=== PATIENT | male | born 1980 | race Caucasian/White ===

== ENCOUNTER 2018-03-29 05:23 | Day surgery (SDC) | payer MEDICAID ==
[2018-03-21 11:54] LABS: BASOPHILS # (AUTO) 0.1 X10'3 (0-0.2); BASOPHILS % (AUTO) 0.8 % (0-1); EOSINOPHILS # (AUTO) 0.1 X10'3 (0-0.9); EOSINOPHILS % (AUTO) 1.8 % (0-6); LYMPHOCYTES # (AUTO) 1.8 X10'3 (1.1-4.8); LYMPHOCYTES % (AUTO) 25.9 % (21-51); MEAN CORPUSCULAR HEMOGLOBIN 29.3 PG (27.0-31.0); MEAN CORPUSCULAR HGB CONC 33.7 g/dL (33.0-36.5); MEAN CORPUSCULAR VOLUME 87.1 FL (78-98); MEAN PLATELET VOLUME 8.6 FL (7.4-10.4); MONOCYTES # (AUTO) 0.5 X10'3 (0-0.9); MONOCYTES % (AUTO) 7.4 % (2-12); NEUTROPHILS # (AUTO) 4.4 X10'3 (1.8-7.7); NEUTROPHILS % (AUTO) 64.1 % (42-75); PRE OP HEMATOCRIT 48.7 % (42.0-52.0); PRE OP HEMOGLOBIN 16.4 g/dL (14.0-17.9); PRE OP PLATELET COUNT 224 X10'3 (140-440); RED BLOOD COUNT 5.59 X10'6 (4.70-6.10); RED CELL DISTRIBUTION WIDTH 14.2 % (11.5-14.5)
[2018-03-21 12:08] LABS: ALBUMIN/GLOBULIN RATIO 1.1 (1.1-1.5); ALKALINE PHOSPHATASE 79 IU/L (46-116); BLOOD UREA NITROGEN 13 MG/DL (7-18); BUN/CREATININE RATIO 13.1 (5.4-32.0); CALCIUM 8.6 MG/DL (8.5-10.1); CHLORIDE 105 MMOL/L (99-107); CREATININE 0.99 MG/DL (0.60-1.10); PRE OP ALT 24 U/L (30-65); PRE OP ANION GAP 7 (8-16); PRE OP AST 16 U/L (10-37); PRE OP BILIRUB, TOTAL 0.5 MG/DL (0.0-1.0); PRE OP GLUCOSE 101 MG/DL (70-104); PRE OP POTASSIUM 4.1 MMOL/L (3.4-5.1); PRE OP SODIUM 140 MMOL/L (135-145); TOTAL CARBON DIOXIDE 28.3 MMOL/L (24-32); TOTAL PROTEIN 7.6 G/DL (6.4-8.2); eGFR 85 ML/MIN
[~2018-03-29] VITALS: Ht 193 cm; Wt 113.4 kg
[~2018-03-29 05:23] MED LIST: NO HOME MEDS; ringers solution, lacted 1,000 ML IV SCH
[2018-03-29] MEDS ORDERED: famotidine 20mg tablet PO ONE (05:30)
[2018-03-29] MEDS ORDERED: ceFAZolin inj. 2,000 MG in dextrose 5%-water 50ml 50 ML IV ONE (06:10)
[2018-03-29 06:46] VITALS: BP 113/69
[2018-03-29 06:48] VITALS: BP 113/69
[2018-03-29] MEDS ORDERED: BUPIVAcaine/PF 2.5mg/ml (0.25%) 10ml vial ONE (06:53)
[2018-03-29] MEDS ORDERED: LIDOcaine 0.5% (5mg/ml) 50ml vial ONE (07:19)
[2018-03-29] MEDS ORDERED: fentaNYL/PF 50MCG/1 ML 2ML syringe ONE (07:23)
[2018-03-29] MEDS ORDERED: MIDAZolam 1mg/ml 10ml vial ONE (07:23)
[2018-03-29] MEDS ORDERED: ketorolac trometh. 30mg/ml inj. ONE (07:24)
[2018-03-29] MEDS ORDERED: LIDOcaine 2% (20mg/ml) 5ml vial ONE (07:25)
[2018-03-29] MEDS ORDERED: propofol inj 20 ML IV ONE (07:25)
[2018-03-29] MEDS ORDERED: ringers solution, lacted 1,000 ML IV SCH (07:29)
[2018-03-29] MEDS ORDERED: hydrALAZINE 20mg/ml inj. IV PRN (07:30)
[2018-03-29] MEDS ORDERED: morphine 4 MG/ML inj SYRINge IV PRN ×2 (07:30)
[2018-03-29] MEDS ORDERED: labetalol 20mg/4ml (5mg/ml) syringe IV PRN (07:30)
[2018-03-29] MEDS ORDERED: fentaNYL/PF 50MCG/1 ML 2ML syringe IV PRN ×2 (07:30)
[2018-03-29] MEDS ORDERED: ondansetron/PF 4mg/2ml inj IV PRN (07:30)
[2018-03-29 08:31] VITALS: BP 119/68
--- NOTE | 2018-03-29 08:31 | NUR ---
Received from OR via [facility] , accompanied by Anesthesiologist ABRAHAM and report given by Anesthesiolgist. PATIENT WITH 20G PIV IN LEFT UE RUNNING LR AT 100. DENIES PAIN AT THIS TIME. ICE APPLIED. Addendum: 03/29/18 at 0843 by Hemanth Box RN, RN Amended: Links added.
[2018-03-29 08:41] VITALS: BP 120/73
[2018-03-29 08:51] VITALS: BP 121/75
--- NOTE | 2018-03-29 09:01 | NUR ---
ALL DC CRITERIA HAS BEEN MET. IV TAKEN OUT WITHOUT COMPLICATIONS. ALL INSTRUCTIONS COVERED AND ALL QUESTIONS ANSWERED. DRESSINGS CDI. OUT VIA WHEELCHAIR TO PERSONAL VEHICLE WHERE PATIENT WAS SECURED IN AND DRIVEN HOME BY FAMILY VLADIMIR. Addendum: 03/29/18 at 0913 by Hemanth Box RN, RN Amended: Links added.
== END 2018-03-29 09:01 | disposition home or self-care (01) ==
LOC: PAS 05:23
PROVIDERS: ATTEND Orthopaedic Surgery Hand Surgery
DX: L82.1 Other seborrheic keratosis (principal); F17.200 Nicotine dependence, unspecified, uncomplicated; Z79.899 Other long term (current) drug therapy; F17.210 Nicotine dependence, cigarettes, uncomplicated; Z88.6 Allergy status to analgesic agent
CPT/HCPCS: 11422; 15240; 36415; 80053; 82948; 85025; A6222; A6449; J0690; J1885; J2001; J2250; J2704; J3010; J3490; J7060; J7120; A7000